=== PATIENT | female | born 1995 | race African-American/Black ===

== ENCOUNTER 2021-04-11 23:59 | Emergency (ER) | payer MEDICAID, OTHER ==
[~2021-04-11] VITALS: Ht 157.5 cm; Wt 74.8 kg
--- NOTE | 2021-04-12 00:20 | NUR ---
Dr. Thompson at bedside for MSE.
[2021-04-12] MEDS ORDERED: EPINEPHRINE 1 MG/1 ML AMP IM ONE (00:30)
[2021-04-12 00:41] LABS: MEAN CORPUSCULAR HEMOGLOBIN 30.9 uug (24.7-32.8); MEAN CORPUSCULAR VOLUME 92.4 fL (75.5-95.3); PLATELET COUNT (AUTO) 225 K/uL (179-408)
[2021-04-12 00:42] VITALS: BP 131/87
[2021-04-12] MEDS: predniSONE 20 MG TABLET PO ONE ×2 (00:42→01:14)
[2021-04-12] MEDS ORDERED: EPINEPHRINE 1 MG/1 ML AMP ONE (00:43)
[2021-04-12] MEDS ORDERED: predniSONE 20 MG TABLET ONE ×2 (00:44→01:16)
[2021-04-12 00:54] LABS: BILIRUBIN,DIRECT 0.1 mg/dL (0.0-0.2); BILIRUBIN,TOTAL 0.3 mg/dL (0.2-1.0); POTASSIUM 3.8 mmol/L (3.5-5.1)
--- NOTE | 2021-04-12 00:54 | NUR ---
Xray at bedside.
[2021-04-12 02:19] LABS: *URINE HCG, QUAL NEGATIVE (NEGATIVE)
--- NOTE | 2021-04-12 04:01 | NUR ---
Dr. Thompson speaking with Dr. Arriaza of [facility] cardiology for cardiology consult.
--- NOTE | 2021-04-12 04:23 | NUR ---
Received call back from Felice, wrapper caser of [facility], requested to have our MD call Dr. Stevens . Pt facesheet and clinical info to be faxed to [facility].
--- NOTE | 2021-04-12 04:28 | NUR ---
Dr. Thompson speaking with Dr. Stevens of [facility]. Pt accepted by Dr. Stevens.
--- NOTE | 2021-04-12 05:50 | NUR ---
Received call back from Viraj Viveros [facility] Resolution Agent, with transfer information, Pt is going to room 510B, Accepting MD is Dr. Stevens, Number to report to is .
--- NOTE | 2021-04-12 06:00 | NUR ---
Called [facility] ambulance for transport of patient to [facility], given eta 1-1.5 hours~[phone].
[2021-04-12] MEDS ORDERED: FENTANYL CITRATE 100 MCG/2 ML AMPUL IV ONE (06:15)
[2021-04-12] MEDS ORDERED: ACETAMINOPHEN ES 500 MG TABLET ONE (06:18)
[2021-04-12] MEDS ORDERED: ACETAMINOPHEN ES 500 MG TABLET PO ONE (06:30)
--- NOTE | 2021-04-12 07:06 | NUR ---
Report given to Carmencita rodriguez.
--- NOTE | 2021-04-12 07:08 | NUR ---
Report given by Elijah Morales, director of primary care at the bedside for Tx.
--- NOTE | 2021-04-12 07:44 | NUR ---
Spoke to Pt's RN Justin at [facility], she will call back to get report.
--- NOTE | 2021-04-12 08:22 | NUR ---
Recieved call from ryanne [place] [employer] RN, report given.
== END 2021-04-12 08:22 | disposition short-term general hospital (02) ==
LOC: ER 04-12
DX: R07.9 Chest pain, unspecified (principal); R00.2 Palpitations; R00.1 Bradycardia, unspecified; Z20.822 Contact with and (suspected) exposure to COVID-19; I44.1 Atrioventricular block, second degree
CPT/HCPCS: 36415; 71045; 80048; 80076; 84484 ×2; 84703; 85025; 85379; 87426; 93005 ×3; 96372; 99285; J0171; J7512 ×2; 70030-TC; A9150